=== PATIENT | male | born 1945 | race Caucasian/White ===

== ENCOUNTER 2018-01-26 10:53 | Emergency (ER) | payer MEDICARE ==
[2018-01-26] MEDS: ONDANSETRON 4 MG INJ IV (11:53)
[2018-01-26] MEDS: KETOROLAC 15 MG INJ IV (11:53)
[2018-01-26] MEDS: SOD CHLORIDE 0.9% 500 ML IV (11:53)
[2018-01-26 11:57] LABS: ADD MAN DIFF? NO
[2018-01-26 12:06] LABS: ANION GAP 14 (8-16); BLOOD UREA NITROGEN 11 mg/dl (7-20); CALCIUM 9.4 mg/dl (8.4-10.2); CARBON DIOXIDE 28 mmol/L (21-31); CHLORIDE 106 mmol/L (97-110); CREATININE 0.77 mg/dl (0.61-1.24); GLUCOSE 110 mg/dl (70-220); POTASSIUM 4.5 mmol/L (3.5-5.1); SODIUM 143 mmol/L (135-144)
[2018-01-26 12:08] LABS: WHITE BLOOD COUNT 9.2 10^3/ul (4.8-10.8)
[2018-01-26 12:08] LABS: BASOPHILS % 0.3 % (0.0-2.0); EOSINOPHILS # 0.1 10^3/ul (0.0-0.5); EOSINOPHILS % 1.2 % (0.0-7.0); HEMATOCRIT 47.9 % (42.0-52.0); HEMOGLOBIN 15.8 g/dl (14.0-18.0); LYMPHOCYTES # 1.8 10^3/ul (0.8-2.9); LYMPHOCYTES % 19.9 % (15.0-51.0); MEAN CORPUSCULAR HEMOGLOBIN 29.6 pg (29.0-33.0); MEAN CORPUSCULAR VOLUME 89.7 fl (82.0-101.0); MEAN PLATELET VOLUME 9.7 fl (7.4-10.4); MONOCYTE # 0.9 10^3/ul (0.3-0.9); MONOCYTES % 9.9 % (0.0-11.0); NEUTROPHIL # 6.3 10^3/ul (1.6-7.5); NEUTROPHILS % 68.5 % (39.0-77.0); PLATELET COUNT 270 10^3/UL (140-415); RED BLOOD COUNT 5.34 10^6/ul (4.70-6.10); RED CELL DISTRIBUTION WIDTH 12.9 % (11.5-14.5)
[2018-01-26 13:24] LABS: ADD UMIC NO; UR ASCORBIC ACID NEGATIVE (NEGATIVE); UR BILIRUBIN (Dip) NEGATIVE (NEGATIVE); UR BLOOD (Dip) NEGATIVE (NEGATIVE); UR CLARITY CLEAR (CLEAR); UR COLOR YELLOW (YELLOW); UR GLUCOSE (Dip) NEGATIVE (NEGATIVE); UR KETONES (Dip) NEGATIVE (NEGATIVE); UR LEUKOCYTE ESTERASE (Dip) NEGATIVE Leu/ul (NEGATIVE); UR NITRITE (Dip) NEGATIVE (NEGATIVE); UR SPECIFIC GRAVITY (Dip) 1.012 (1.003-1.030); UR TOTAL PROTEIN (Dip) NEGATIVE (NEGATIVE); UR UROBILINOGEN (Dip) NEGATIVE (NEGATIVE)
[2018-01-26] MEDS: morphine 4 MG/ML VIAL IV (14:23)
== END 2018-01-26 15:50 | disposition home or self-care (01) ==
LOC: E/R 10:53
DX: R10.9 Unspecified abdominal pain (principal); G20 Parkinson's disease; F41.1 Generalized anxiety disorder; Z87.891 Personal history of nicotine dependence
CPT/HCPCS: 36415; 74176; 80048; 81003; 85025; 96374; 96375; 99285-25

== ENCOUNTER 2018-01-30 10:40 | Emergency (ER) | payer MEDICARE ==
[2018-01-30 11:56] LABS: ADD MAN DIFF? NO
[2018-01-30] MEDS: ONDANSETRON 4 MG INJ IV (11:57)
[2018-01-30] MEDS: SOD CHLORIDE 0.9% 1,000 ML IV (11:57)
[2018-01-30] MEDS: morphine 4 MG/ML VIAL IV (11:57)
[2018-01-30 12:10] LABS: BASOPHIL # 0.1 10^3/ul (0.0-0.1); BASOPHILS % 0.5 % (0.0-2.0); EOSINOPHILS % 0.4 % (0.0-7.0); HEMATOCRIT 48.1 % (42.0-52.0); HEMOGLOBIN 15.7 g/dl (14.0-18.0); LYMPHOCYTES # 1.6 10^3/ul (0.8-2.9); LYMPHOCYTES % 15.9 % (15.0-51.0); MEAN CORPUSCULAR HEMOGLOBIN 29.5 pg (29.0-33.0); MEAN CORPUSCULAR HGB CONC 32.6 g/dl (32.0-37.0); MEAN CORPUSCULAR VOLUME 90.4 fl (82.0-101.0); MEAN PLATELET VOLUME 9.7 fl (7.4-10.4); MONOCYTE # 1.3 10^3/ul (0.3-0.9); NEUTROPHIL # 7.2 10^3/ul (1.6-7.5); PLATELET COUNT 260 10^3/UL (140-415); RED BLOOD COUNT 5.32 10^6/ul (4.70-6.10); RED CELL DISTRIBUTION WIDTH 13.2 % (11.5-14.5)
[2018-01-30 12:10] LABS: WHITE BLOOD COUNT 10.3 10^3/ul (4.8-10.8)
[2018-01-30 12:19] LABS: ALANINE AMINOTRANSFERASE 33 IU/L (13-69); ALBUMIN 4.1 g/dl (3.3-4.9); ALBUMIN/GLOBULIN RATIO 1.24; ALKALINE PHOSPHATASE 51 IU/L (42-121); ANION GAP 15 (8-16); ASPARTATE AMINO TRANSFERASE 26 IU/L (15-46); BILIRUBIN,INDIRECT 0.4 mg/dl (0-1.1); BILIRUBIN,TOTAL 0.4 mg/dl (0.2-1.3); BLOOD UREA NITROGEN 16 mg/dl (7-20); CARBON DIOXIDE 28 mmol/L (21-31); CHLORIDE 112 mmol/L (97-110); CREATININE 0.94 mg/dl (0.61-1.24); GLUCOSE 102 mg/dl (70-220); LIPASE 69 U/L (23-300); POTASSIUM 4.7 mmol/L (3.5-5.1); SODIUM 150 mmol/L (135-144); TOTAL PROTEIN 7.4 g/dl (6.1-8.1)
[2018-01-30 12:34] LABS: ADD UMIC YES; UR ASCORBIC ACID NEGATIVE (NEGATIVE); UR BACTERIA FEW /HPF (NONE SEEN); UR BILIRUBIN (Dip) NEGATIVE (NEGATIVE); UR BLOOD (Dip) 1+ mg/dL (NEGATIVE); UR CLARITY CLOUDY (CLEAR); UR COLOR YELLOW (YELLOW); UR GLUCOSE (Dip) 1+ mg/dL (NEGATIVE); UR GRANULAR CAST FEW /HPF (NONE SEEN); UR KETONES (Dip) NEGATIVE (NEGATIVE); UR LEUKOCYTE ESTERASE (Dip) NEGATIVE Leu/ul (NEGATIVE); UR MUCUS FEW /HPF (NONE SEEN); UR NITRITE (Dip) NEGATIVE (NEGATIVE); UR NONSQUAMOUS EPITHELIAL CELL 1 /HPF (NONE SEEN); UR RBC 1 /HPF (0-5); UR SPECIFIC GRAVITY (Dip) 1.016 (1.003-1.030); UR TOTAL PROTEIN (Dip) 1+ mg/dl (NEGATIVE); UR UROBILINOGEN (Dip) NEGATIVE (NEGATIVE); UR WBC 34 /HPF (0-5)
[2018-01-30 12:36] LABS: TROPONIN-I < 0.012 ng/ml (0.000-0.120)
[2018-01-30] MEDS: IOHEXOL 300MG/ML 150 ML BTL (13:09)
[2018-01-30] MEDS: SOD CHLORIDE 0.9% 100 ML (13:09)
[2018-01-30] MEDS: NITROFURANTOIN (SR) 100 MG CAP PO (14:20)
== END 2018-01-30 16:57 | disposition home or self-care (01) ==
LOC: E/R 10:40
DX: N30.90 Cystitis, unspecified without hematuria (principal); G20 Parkinson's disease; F17.210 Nicotine dependence, cigarettes, uncomplicated; R40.2142 Coma scale, eyes open, spontaneous, at arrival to emergency department; R40.2362 Coma scale, best motor response, obeys commands, at arrival to emergency department; R40.2252 Coma scale, best verbal response, oriented, at arrival to emergency department; R10.9 Unspecified abdominal pain
CPT/HCPCS: 36415; 74177; 80053; 81001; 83690; 84484; 85025; 93005; 96374; 96375; 99285-25

== ENCOUNTER 2018-02-02 12:04 | Observation (INO) | payer MEDICARE ==
[2018-02-02 14:37] LABS: ADD MAN DIFF? NO
[2018-02-02 14:40] LABS: WHITE BLOOD COUNT 10.6 10^3/ul (4.8-10.8)
[2018-02-02 14:40] LABS: BASOPHIL # 0.1 10^3/ul (0.0-0.1); BASOPHILS % 0.5 % (0.0-2.0); EOSINOPHILS # 0.2 10^3/ul (0.0-0.5); EOSINOPHILS % 1.6 % (0.0-7.0); HEMATOCRIT 43.1 % (42.0-52.0); HEMOGLOBIN 14.5 g/dl (14.0-18.0); LYMPHOCYTES % 19.1 % (15.0-51.0); MEAN CORPUSCULAR HEMOGLOBIN 30.3 pg (29.0-33.0); MEAN CORPUSCULAR HGB CONC 33.6 g/dl (32.0-37.0); MEAN PLATELET VOLUME 9.6 fl (7.4-10.4); MONOCYTE # 1.3 10^3/ul (0.3-0.9); MONOCYTES % 12.4 % (0.0-11.0); NEUTROPHILS % 66.1 % (39.0-77.0); PLATELET COUNT 228 10^3/UL (140-415); RED BLOOD COUNT 4.79 10^6/ul (4.70-6.10); RED CELL DISTRIBUTION WIDTH 13.1 % (11.5-14.5)
[2018-02-02] MEDS: ONDANSETRON 4 MG INJ IV (14:40)
[2018-02-02] MEDS: morphine 4 MG/ML VIAL IV (14:40)
[2018-02-02] MEDS: BELLADONNA/PHENOBARBITAL TAB PO (14:41)
[2018-02-02] MEDS: SOD CHLORIDE 0.9% 1,000 ML IV (14:41)
[2018-02-02] MEDS: LIDOCAINE/MYLANTA 40 ML BTL PO (14:41)
[2018-02-02 15:14] LABS: ALANINE AMINOTRANSFERASE 18 IU/L (13-69); ALBUMIN 3.7 g/dl (3.3-4.9); ALBUMIN/GLOBULIN RATIO 1.15; ALKALINE PHOSPHATASE 69 IU/L (42-121); ANION GAP 18 (8-16); ASPARTATE AMINO TRANSFERASE 53 IU/L (15-46); BILIRUBIN,INDIRECT 0.4 mg/dl (0-1.1); BILIRUBIN,TOTAL 0.4 mg/dl (0.2-1.3); BLOOD UREA NITROGEN 14 mg/dl (7-20); CARBON DIOXIDE 20 mmol/L (21-31); CHLORIDE 113 mmol/L (97-110); GLUCOSE 95 mg/dl (70-220); LIPASE 94 U/L (23-300); POTASSIUM 4.5 mmol/L (3.5-5.1); SODIUM 146 mmol/L (135-144); TOTAL PROTEIN 6.9 g/dl (6.1-8.1)
[2018-02-02 16:04] LABS: ADD UMIC YES; UR ASCORBIC ACID NEGATIVE (NEGATIVE); UR BILIRUBIN (Dip) NEGATIVE (NEGATIVE); UR BLOOD (Dip) 1+ mg/dL (NEGATIVE); UR CLARITY CLEAR (CLEAR); UR COLOR YELLOW (YELLOW); UR GLUCOSE (Dip) NEGATIVE (NEGATIVE); UR KETONES (Dip) NEGATIVE (NEGATIVE); UR LEUKOCYTE ESTERASE (Dip) NEGATIVE Leu/ul (NEGATIVE); UR MUCUS FEW /HPF (NONE SEEN); UR NITRITE (Dip) NEGATIVE (NEGATIVE); UR RBC 14 /HPF (0-5); UR SPECIFIC GRAVITY (Dip) 1.021 (1.003-1.030); UR TOTAL PROTEIN (Dip) NEGATIVE (NEGATIVE); UR UROBILINOGEN (Dip) NEGATIVE (NEGATIVE); UR WBC 1 /HPF (0-5)
[2018-02-02 16:30] LABS: AMPHETAMINE/METHAMPHETAMINE Negative (NEGATIVE); BARBITURATES Negative (NEGATIVE)
[2018-02-02 16:42] LABS: CANNABINOIDS Positive (NEGATIVE)
[2018-02-02 16:46] LABS: COCAINE Negative (NEGATIVE)
[2018-02-02 16:47] LABS: OPIATES Positive (NEGATIVE)
[2018-02-02 17:05] LABS: BENZODIAZEPINES Negative (NEGATIVE)
[2018-02-02] MEDS ORDERED: ONDANSETRON 4 MG INJ IV (18:00)
[2018-02-02] MEDS ORDERED: ALBUTEROL/IPRATROPIUM (NEB) 3 ML AMP HHN (18:00)
[2018-02-02] MEDS ORDERED: NA PHOSPHATE/BIPHOS 133 ML ENEMA PR (18:00)
[2018-02-02] MEDS ORDERED: MAGNESIUM HYDROXIDE 30ML CUP PO (18:00)
[2018-02-02] MEDS ORDERED: hydrALAzine 20 MG INJ IV (18:00)
[2018-02-02] MEDS ORDERED: NITROGLYCERIN (SL) 0.4 MG TAB SL (18:00)
[2018-02-02] MEDS ORDERED: NACL 0.9% 3 ML SYG IV (18:00)
[2018-02-02] MEDS: SOD CHLORIDE 0.45% 1,000 ML IV (18:41)
[2018-02-02] MEDS: morphine 2 MG INJ IV ×2 (18:42→23:21)
[2018-02-02] MEDS: LORAZEPAM 2 MG INJ IV (19:56)
[2018-02-02] MEDS: HEPARIN 5,000 UNIT/0.5 ML VIAL SC (20:43)
[2018-02-02 20:44] LABS: FREE T4 (FREE THYROXINE) 1.17 ng/dl (0.78-2.44)
[2018-02-02] MEDS: HYDROCODONE/APAP (5/325) TAB PO (20:48)
[2018-02-02] MEDS: ONDANSETRON INJ 8 MG in DEXTROSE 5% 50 ML IV (23:17)
[2018-02-03] MEDS: HYDROCODONE/APAP (5/325) TAB PO ×2 (03:28→18:46)
[2018-02-03] MEDS: PANTOPRAZOLE (EC) 40 MG TAB PO (05:21)
[2018-02-03 06:03] LABS: ADD MAN DIFF? NO
[2018-02-03 06:05] LABS: WHITE BLOOD COUNT 8.2 10^3/ul (4.8-10.8)
[2018-02-03 06:05] LABS: BASOPHILS % 0.4 % (0.0-2.0); EOSINOPHILS # 0.2 10^3/ul (0.0-0.5); EOSINOPHILS % 2.9 % (0.0-7.0); HEMATOCRIT 40.2 % (42.0-52.0); HEMOGLOBIN 13.2 g/dl (14.0-18.0); LYMPHOCYTES # 1.9 10^3/ul (0.8-2.9); LYMPHOCYTES % 22.8 % (15.0-51.0); MEAN CORPUSCULAR HEMOGLOBIN 30.2 pg (29.0-33.0); MEAN CORPUSCULAR HGB CONC 32.8 g/dl (32.0-37.0); MEAN PLATELET VOLUME 9.3 fl (7.4-10.4); MONOCYTES % 12.3 % (0.0-11.0); NEUTROPHILS % 61.2 % (39.0-77.0); PLATELET COUNT 231 10^3/UL (140-415); RED BLOOD COUNT 4.37 10^6/ul (4.70-6.10); RED CELL DISTRIBUTION WIDTH 13.2 % (11.5-14.5)
[2018-02-03] MEDS: morphine 2 MG INJ IV ×4 (06:42→21:18)
[2018-02-03 06:56] LABS: ANION GAP 13 (8-16); BLOOD UREA NITROGEN 14 mg/dl (7-20); CALCIUM 8.6 mg/dl (8.4-10.2); CARBON DIOXIDE 23 mmol/L (21-31); CHLORIDE 111 mmol/L (97-110); CHOL/HDL RATIO 4.1 RATIO; CHOLESTEROL 133 mg/dl (100-200); CREATININE 0.88 mg/dl (0.61-1.24); GLUCOSE 90 mg/dl (70-220); HDL CHOLESTEROL 32 mg/dl (31-75); LDL CHOLESTEROL,CALCULATED 85 mg/dl; PHOSPHORUS 3.2 mg/dl (2.5-4.9); POTASSIUM 3.9 mmol/L (3.5-5.1); SODIUM 143 mmol/L (135-144); TRIGLYCERIDES 80 mg/dl (0-149)
[2018-02-03] MEDS: ONDANSETRON INJ 8 MG in DEXTROSE 5% 50 ML IV ×3 (06:59→21:29)
[2018-02-03] MEDS: SOD CHLORIDE 0.45% 1,000 ML IV ×3 (07:05→23:32)
[2018-02-03] MEDS: HEPARIN 5,000 UNIT/0.5 ML VIAL SC ×2 (08:30→21:19)
[2018-02-03] MEDS: ACETAMINOPHEN 325 MG TAB PO (23:35)
[2018-02-04] MEDS: morphine 2 MG INJ IV ×5 (01:03→22:31)
[2018-02-04] MEDS: ONDANSETRON INJ 8 MG in DEXTROSE 5% 50 ML IV ×3 (03:53→20:31)
[2018-02-04] MEDS: HYDROCODONE/APAP (5/325) TAB PO (04:00)
[2018-02-04] MEDS: PANTOPRAZOLE (EC) 40 MG TAB PO (05:20)
[2018-02-04 05:33] LABS: ADD MAN DIFF? NO
[2018-02-04 05:49] LABS: BASOPHILS % 0.3 % (0.0-2.0); EOSINOPHILS # 0.2 10^3/ul (0.0-0.5); EOSINOPHILS % 3.5 % (0.0-7.0); HEMATOCRIT 38.6 % (42.0-52.0); HEMOGLOBIN 12.8 g/dl (14.0-18.0); LYMPHOCYTES # 1.7 10^3/ul (0.8-2.9); LYMPHOCYTES % 26.8 % (15.0-51.0); MEAN CORPUSCULAR HEMOGLOBIN 30.1 pg (29.0-33.0); MEAN CORPUSCULAR HGB CONC 33.2 g/dl (32.0-37.0); MEAN CORPUSCULAR VOLUME 90.8 fl (82.0-101.0); MEAN PLATELET VOLUME 9.4 fl (7.4-10.4); MONOCYTE # 0.7 10^3/ul (0.3-0.9); MONOCYTES % 11.1 % (0.0-11.0); NEUTROPHIL # 3.8 10^3/ul (1.6-7.5); PLATELET COUNT 221 10^3/UL (140-415); RED BLOOD COUNT 4.25 10^6/ul (4.70-6.10); RED CELL DISTRIBUTION WIDTH 12.6 % (11.5-14.5)
[2018-02-04 05:49] LABS: WHITE BLOOD COUNT 6.5 10^3/ul (4.8-10.8)
[2018-02-04 06:37] LABS: ANION GAP 8 (8-16); BLOOD UREA NITROGEN 9 mg/dl (7-20); CALCIUM 8.5 mg/dl (8.4-10.2); CARBON DIOXIDE 29 mmol/L (21-31); CHLORIDE 107 mmol/L (97-110); CREATININE 0.84 mg/dl (0.61-1.24); GLUCOSE 100 mg/dl (70-220); POTASSIUM 4.2 mmol/L (3.5-5.1); SODIUM 140 mmol/L (135-144)
[2018-02-04] MEDS: ACETAMINOPHEN 325 MG TAB PO (08:51)
[2018-02-04] MEDS: HEPARIN 5,000 UNIT/0.5 ML VIAL SC ×2 (09:11→20:33)
[2018-02-04] MEDS: SOD CHLORIDE 0.45% 1,000 ML IV ×2 (09:45→14:30)
[2018-02-04] MEDS: LORAZEPAM 2 MG INJ IV ×2 (11:37→18:14)
[2018-02-04] MEDS: DOCUSATE SODIUM 100 MG CAP PO (16:57)
[2018-02-05] MEDS: LORAZEPAM 2 MG INJ IV ×2 (00:59→08:39)
[2018-02-05] MEDS: SOD CHLORIDE 0.45% 1,000 ML IV (03:35)
[2018-02-05] MEDS: DOCUSATE SODIUM 100 MG CAP PO (05:27)
[2018-02-05] MEDS: PANTOPRAZOLE (EC) 40 MG TAB PO (05:27)
[2018-02-05] MEDS: ONDANSETRON INJ 8 MG in DEXTROSE 5% 50 ML IV ×2 (05:27→11:07)
[2018-02-05] MEDS: morphine 2 MG INJ IV ×2 (05:28→11:06)
[2018-02-05 06:12] LABS: ADD MAN DIFF? NO
[2018-02-05 06:22] LABS: BASOPHILS % 0.4 % (0.0-2.0); EOSINOPHILS # 0.2 10^3/ul (0.0-0.5); EOSINOPHILS % 2.8 % (0.0-7.0); HEMATOCRIT 38.4 % (42.0-52.0); HEMOGLOBIN 12.6 g/dl (14.0-18.0); LYMPHOCYTES # 1.8 10^3/ul (0.8-2.9); LYMPHOCYTES % 27.4 % (15.0-51.0); MEAN CORPUSCULAR HEMOGLOBIN 29.9 pg (29.0-33.0); MEAN CORPUSCULAR HGB CONC 32.8 g/dl (32.0-37.0); MEAN PLATELET VOLUME 9.5 fl (7.4-10.4); MONOCYTE # 0.8 10^3/ul (0.3-0.9); MONOCYTES % 12.2 % (0.0-11.0); NEUTROPHIL # 3.8 10^3/ul (1.6-7.5); NEUTROPHILS % 56.9 % (39.0-77.0); PLATELET COUNT 223 10^3/UL (140-415); RED BLOOD COUNT 4.22 10^6/ul (4.70-6.10); RED CELL DISTRIBUTION WIDTH 12.6 % (11.5-14.5)
[2018-02-05 06:22] LABS: WHITE BLOOD COUNT 6.7 10^3/ul (4.8-10.8)
[2018-02-05 07:38] LABS: ANION GAP 12 (8-16); BLOOD UREA NITROGEN 11 mg/dl (7-20); CALCIUM 8.5 mg/dl (8.4-10.2); CARBON DIOXIDE 27 mmol/L (21-31); CHLORIDE 107 mmol/L (97-110); CREATININE 0.85 mg/dl (0.61-1.24); GLUCOSE 96 mg/dl (70-220); POTASSIUM 4.3 mmol/L (3.5-5.1); SODIUM 142 mmol/L (135-144)
[2018-02-05] MEDS: HEPARIN 5,000 UNIT/0.5 ML VIAL SC (09:25)
[2018-02-05] MEDS ORDERED: morphine LIQ (10 MG/5 ML) CUP PO (13:30)
== END 2018-02-05 13:45 | disposition home or self-care (01) ==
LOC: E/R 12:04 → MS2 16:33
DX: I10 Essential (primary) hypertension (principal); F41.9 Anxiety disorder, unspecified; Z87.442 Personal history of urinary calculi
CPT/HCPCS: 36415; 80048; 80053; 80061; 80307; 81001; 83036; 83690; 83735; 84100; 84439; 84443; 85025; 86674; 87086; 96374; 96375; 99285-25

== ENCOUNTER 2018-02-11 07:14 | Emergency (ER) | payer MEDICARE ==
[2018-02-11] MEDS: LACTATED RINGER'S 1,000 ML IV (07:52)
[2018-02-11 07:53] LABS: ADD MAN DIFF? NO
[2018-02-11 07:56] LABS: WHITE BLOOD COUNT 7.9 10^3/ul (4.8-10.8)
[2018-02-11 07:56] LABS: BASOPHILS % 0.4 % (0.0-2.0); EOSINOPHILS # 0.1 10^3/ul (0.0-0.5); EOSINOPHILS % 1.4 % (0.0-7.0); HEMATOCRIT 46.3 % (42.0-52.0); HEMOGLOBIN 15.3 g/dl (14.0-18.0); LYMPHOCYTES # 1.7 10^3/ul (0.8-2.9); LYMPHOCYTES % 21.1 % (15.0-51.0); MEAN CORPUSCULAR HEMOGLOBIN 29.7 pg (29.0-33.0); MEAN CORPUSCULAR VOLUME 89.9 fl (82.0-101.0); MEAN PLATELET VOLUME 9.4 fl (7.4-10.4); MONOCYTE # 1.1 10^3/ul (0.3-0.9); MONOCYTES % 13.8 % (0.0-11.0); NEUTROPHILS % 62.9 % (39.0-77.0); PLATELET COUNT 325 10^3/UL (140-415); RED BLOOD COUNT 5.15 10^6/ul (4.70-6.10); RED CELL DISTRIBUTION WIDTH 13.3 % (11.5-14.5)
[2018-02-11 08:14] LABS: ALANINE AMINOTRANSFERASE 50 IU/L (13-69); ALBUMIN 4.1 g/dl (3.3-4.9); ALBUMIN/GLOBULIN RATIO 1.32; ALKALINE PHOSPHATASE 58 IU/L (42-121); ANION GAP 18 (8-16); ASPARTATE AMINO TRANSFERASE 22 IU/L (15-46); BILIRUBIN,INDIRECT 0.5 mg/dl (0-1.1); BILIRUBIN,TOTAL 0.5 mg/dl (0.2-1.3); BLOOD UREA NITROGEN 15 mg/dl (7-20); CALCIUM 9.4 mg/dl (8.4-10.2); CARBON DIOXIDE 26 mmol/L (21-31); CHLORIDE 108 mmol/L (97-110); GLUCOSE 115 mg/dl (70-220); LIPASE 82 U/L (23-300); POTASSIUM 3.7 mmol/L (3.5-5.1); SODIUM 148 mmol/L (135-144); TOTAL PROTEIN 7.2 g/dl (6.1-8.1)
[2018-02-11] MEDS: ONDANSETRON 4 MG INJ IV (08:34)
[2018-02-11 08:56] LABS: ADD UMIC NO; UR ASCORBIC ACID NEGATIVE (NEGATIVE); UR BILIRUBIN (Dip) NEGATIVE (NEGATIVE); UR BLOOD (Dip) NEGATIVE (NEGATIVE); UR CLARITY CLEAR (CLEAR); UR COLOR YELLOW (YELLOW); UR GLUCOSE (Dip) NEGATIVE (NEGATIVE); UR KETONES (Dip) NEGATIVE (NEGATIVE); UR LEUKOCYTE ESTERASE (Dip) NEGATIVE Leu/ul (NEGATIVE); UR NITRITE (Dip) NEGATIVE (NEGATIVE); UR SPECIFIC GRAVITY (Dip) 1.021 (1.003-1.030); UR TOTAL PROTEIN (Dip) NEGATIVE (NEGATIVE); UR UROBILINOGEN (Dip) NEGATIVE (NEGATIVE)
[2018-02-11 09:21] LABS: TROPONIN-I < 0.012 ng/ml (0.000-0.120)
[2018-02-11] MEDS: METOCLOPRAMIDE 10 MG INJ IV (09:24)
== END 2018-02-11 10:02 | disposition home or self-care (01) ==
LOC: E/R 07:14
DX: R10.84 Generalized abdominal pain (principal); R11.0 Nausea; F17.210 Nicotine dependence, cigarettes, uncomplicated; R40.2142 Coma scale, eyes open, spontaneous, at arrival to emergency department; R40.2252 Coma scale, best verbal response, oriented, at arrival to emergency department; R40.2362 Coma scale, best motor response, obeys commands, at arrival to emergency department; Z71.6 Tobacco abuse counseling
CPT/HCPCS: 36415; 74019; 80053; 81003; 83690; 84484; 85025; 96374; 96375; 99285-25